=== PATIENT | female | born 1955 | race Two or more races ===

== ENCOUNTER 2021-09-02 07:00 | Inpatient (IN) | payer OTHER ==
[~2021-09-02] VITALS: Ht 154.9 cm; Wt 74.1 kg
[~2021-09-02 07:00] MED LIST: ACET-1304 PO; ASPI1TAB20 PO; ATOR10TA PO; CARV6.2551 PO; CLOP75TA70 PO; GABA300C10 PO; HYDR25TA4 PO; LORA-622 PO; POTA10TA51 PO
[2021-09-02] MEDS ORDERED: LIDOCAINE 1%-Mpf/Epinephrine 1:200,000 ONE (07:59)
[2021-09-02] MEDS ORDERED: METHYLENE BLUE 0.5% 5MG/ML 10ml AMP IV ONE (07:59)
[2021-09-02] MEDS ORDERED: BUPIVACAINE 0.25% INJ 50ML VIAL ONE (08:00)
[2021-09-02] MEDS ORDERED: ceFAZolin 1GM/50ML 100 ML IV ONE (08:02)
[2021-09-02] MEDS ORDERED: HYDROmorphone HCL 2 MG/ML VL/or syr ONE (08:21)
[2021-09-02] MEDS ORDERED: GLYCOPYRROLATE 0.2 MG/ML 1ML VIAL ONE (08:22)
[2021-09-02] MEDS ORDERED: ROCURONIUM 10MG/ML 10ML VIAL IV ONE (08:22)
[2021-09-02] MEDS ORDERED: KETAMINE HCL 10 ML ONE (08:22)
[2021-09-02] MEDS ORDERED: DexAMETHasone SOD PHOS 10MG/1ML VIAL INJ ONE (08:22)
[2021-09-02] MEDS ORDERED: fentaNYL CITRATE 100 MCG/2 ML VL ONE (08:22)
[2021-09-02] MEDS ORDERED: ePHEDrine SULFATE 50 MG/ML AMP ONE (08:22)
[2021-09-02] MEDS ORDERED: MIDAZOLAM HCL 2MG/2ML 2ml VIAL (1mg/ml) ONE (08:22)
[2021-09-02] MEDS ORDERED: ONDANSETRON HCL 4 MG/2 ML VIAL ONE (08:22)
[2021-09-02] MEDS ORDERED: PROPOFOL 10 MG/ML 20 ML IV ONE (08:23)
[2021-09-02] MEDS ORDERED: MORPHINE SULFATE INJ 2 MG/ml SYRG IV PRN (08:30)
[2021-09-02] MEDS ORDERED: HYDROcodone-ACET 5/325MG TAB PO PRN (08:30)
[2021-09-02] MEDS ORDERED: ceFAZolin 1GM/50ML 50 ML IV ONE (08:30)
[2021-09-02] MEDS ORDERED: NITROGLYCERIN 0.4 MG SL TAB SL PRN (08:30)
[2021-09-02] MEDS ORDERED: MORPHINE SULFATE 4 MG/ML SYR/VIAL IV PRN (08:30)
[2021-09-02] MEDS ORDERED: ASPirin 81 mg TAB PO ONE (08:30)
[2021-09-02] MEDS ORDERED: ONDANSETRON HCL 4 MG/2 ML VIAL IV PRN ×2 (08:30→12:00)
[2021-09-02] MEDS ORDERED: ACETAMINOPHEN 500 MG TAB PO PRN (08:30)
[2021-09-02] MEDS ORDERED: FAMOTIDINE (10MG/ML) 2ML VL IV ONE (08:40)
[2021-09-02] MEDS ORDERED: RHO (D) IMMUNE GLOBULIN 300 MCG INJ IM PRN (08:45)
[2021-09-02] MEDS ORDERED: SUGAMMADEX 200mg/2ml Vial (100MG/ML) IV ONE (09:49)
[2021-09-02] MEDS ORDERED: HYDROmorphone HCL 2 MG/ML VL/or syr IV PRN (12:00)
[2021-09-02] MEDS: LORATADINE 10 MG TAB PO SCH ×2 (12:51→21:26)
[2021-09-02] MEDS: HCTZ 25 MG TAB PO SCH (12:52)
[2021-09-02] MEDS: CARVEDILOL 3.125 MG TAB PO SCH ×2 (12:52→21:26)
[2021-09-02] MEDS: POTASSIUM CHL 10 Meq TABLET PO SCH (12:53)
[2021-09-02] MEDS: CLOPIDOGREL BISULFATE 75 MG TAB PO SCH (12:53)
[2021-09-02 16:32] VITALS: BP 156/67
[2021-09-02 21:41] VITALS: BP 153/73
[2021-09-03] MEDS: SODIUM CHLORIDE 0.9% 1,000 ML IV SCH ×2 (03:00→08:30)
[2021-09-03 04:41] VITALS: BP 99/63
[2021-09-03 09:00] VITALS: BP 141/72
[2021-09-03] MEDS: CLOPIDOGREL BISULFATE 75 MG TAB PO SCH (09:06)
[2021-09-03] MEDS: POTASSIUM CHL 10 Meq TABLET PO SCH (09:06)
[2021-09-03] MEDS: HCTZ 25 MG TAB PO SCH (09:07)
[2021-09-03] MEDS: LORATADINE 10 MG TAB PO SCH (09:07)
[2021-09-03] MEDS: CARVEDILOL 3.125 MG TAB PO SCH (09:08)
== END 2021-09-03 12:33 | disposition home or self-care (01) | DRG 743 ==
LOC: SUR 07:00 → TELE 09:06 → TELE-CENTR 14:54
PROVIDERS: ADMIT Obstetrics & Gynecology; ATTEND Obstetrics & Gynecology
PROC: 0UT24ZZ Resection of Bilateral Ovaries, Percutaneous Endoscopic Approach (ICD-10-PCS; 2021-09-02)
PROC: 0UT74ZZ Resection of Bilateral Fallopian Tubes, Percutaneous Endoscopic Approach (ICD-10-PCS; 2021-09-02)
PROC: 0USG4ZZ Reposition Vagina, Percutaneous Endoscopic Approach (ICD-10-PCS; 2021-09-02)
PROC: 8E0W4CZ Robotic Assisted Procedure of Trunk Region, Percutaneous Endoscopic Approach (ICD-10-PCS; 2021-09-02)
PROC: 0UT94ZL Resection of Uterus, Supracervical, Percutaneous Endoscopic Approach (ICD-10-PCS; principal; 2021-09-02 08:40)
DX: N81.2 Incomplete uterovaginal prolapse (principal); R10.2 Pelvic and perineal pain; Z20.822 Contact with and (suspected) exposure to COVID-19
CPT/HCPCS: 86850; 86900; 86901; G0378; J0690; J1100; J2250; J2405; J2704; J3490

== ENCOUNTER 2023-07-07 13:36 | Emergency (ER) | payer OTHER ==
[~2023-07-07] VITALS: Ht 154.9 cm; Wt 75.0 kg
[~2023-07-07 13:36] MED LIST changes: +GABA-1250 PO; -GABA300C10 PO; +POTA-36 PO; -POTA10TA51 PO
[2023-07-07] MEDS ORDERED: HYDR-4902 PO (14:33)
[2023-07-07 15:00] VITALS: BP 140/81; PULSE 90; RESP 16; TEMP 98.4; O2SAT 96
[2023-07-07] MEDS: HYDROcodone-ACET 10/325MG TAB PO ONE (15:18)
== END 2023-07-07 16:22 | disposition home or self-care (01) ==
LOC: ER 13:36 → EDBD 13:36 → ER 16:22
DX: S42.215A Unspecified nondisplaced fracture of surgical neck of left humerus, initial encounter for closed fracture (principal); I25.2 Old myocardial infarction; E78.5 Hyperlipidemia, unspecified; I10 Essential (primary) hypertension; Z86.73 Personal history of transient ischemic attack (TIA), and cerebral infarction without residual deficits; Z90.710 Acquired absence of both cervix and uterus; Z79.899 Other long term (current) drug therapy; W01.0XXA Fall on same level from slipping, tripping and stumbling without subsequent striking against object, initial encounter; Y93.01 Activity, walking, marching and hiking; Y92.89 Other specified places as the place of occurrence of the external cause; Y99.8 Other external cause status
CPT/HCPCS: 29105; 73030; 73060